=== PATIENT | female | born 1950 | race Caucasian/White ===

== ENCOUNTER 2020-10-27 17:19 | Emergency (ER) | payer MEDICARE, OTHER ==
[~2020-10-27] VITALS: Ht 180.3 cm; Wt 53.2 kg
[~2020-10-27 17:19] MED LIST: LISI-642 PO
[2020-10-27 17:40] VITALS: BP 170/82
== END 2020-10-27 21:27 | disposition left against medical advice (07) ==
LOC: ER 17:20
DX: F03.90 Unspecified dementia, unspecified severity, without behavioral disturbance, psychotic disturbance, mood disturbance, and anxiety (principal); Z53.21 Procedure and treatment not carried out due to patient leaving prior to being seen by health care provider